=== PATIENT | male | born 1980 | race Caucasian/White ===

== ENCOUNTER 2020-04-26 14:00 | Emergency (ER) | payer OTHER ==
--- NOTE | 2020-04-26 14:58 | EDM.PDOC ---
ED HPI GENERAL MEDICAL PROBLEM - General Chief Complaint: Headache Stated Complaint: HEADACHE Time Seen by Provider: 04/26/20 14:30 Source of Information: Reports: Patient History Limitations: Reports: No Limitations - History of Present Illness INITIAL COMMENTS - FREE TEXT/NARRATIVE: 39-year-old male presents to the emergency department with primary complaint of headache. He states that last he was having sexual intercourse with his when he developed such a severe headache he had to stop. Patient described the headache pain as a band around his head. Patient states immediately after he checked his blood pressure and his diastolic pressure was over 100. he denies blurred vision, double vision, nausea, vomiting, dizziness. He states at that time he did have some chest pressure with palpitations. Reports that the headache lasted a full 3 days and he did try to take ibuprofen but this did not touch his headache pain. Also states that over the course of the 3 days that he had the headache he had general malaise as well. States that last night he again tried having intercourse with his and he developed a severe headache once again with chest pressure and palpitations. [facility] today and they sent him to the emergency department to be evaluated. Patient states he still has a headache and some chest pressure at the time of ER evaluation. He does carry a history of hypertension for which he takes Cozaar 25 mg daily. History of high cholesterol for which he no longer takes medication. He denies ever having history of migraine headaches or headache this severe. Denies any recent upper respiratory infections, fever, or chills. Headache Pain Score (Numeric/FACES): 4 - Related Data Allergies Allergy/AdvReac Type Severity Reaction Status Date / Time No Known Allergies Allergy Verified 04/26/20 14:12 Home Meds: Home Meds Losartan [Cozaar] 1 tab PO DAILY 04/26/20 [History] Past Medical History Cardiovascular History: Reports: Hypertension Musculoskeletal History: Reports: Other (See Below) Other Musculoskeletal History: achilles tendon surgery - Past Surgical History HEENT Surgical History: Reports: Adenoidectomy, Tonsillectomy Social & Family History - Tobacco Use Tobacco Use Status *Q: Former Tobacco User Used Tobacco, but Quit: Yes Month/Year Tobacco Last Used: 5 - Caffeine Use Caffeine Use: Reports: Coffee - Recreational Drug Use Recreational Drug Use: No ED ROS GENERAL - Review of Systems Review Of Systems: See Below Constitutional: Reports: No Symptoms, Other (Initial vital signs in the emergency department temp 98.4, pulse 66, respiratory rate 20, blood pressure 134/86, pulse ox 97% on room air.). Denies: Fever, Chills, Malaise HEENT: Reports: No Symptoms Respiratory: Reports: No Symptoms. Denies: Shortness of Breath, Pleuritic Chest Pain, Cough Cardiovascular: Reports: Chest Pain (Pressure), Palpitations. Denies: Edema, Lightheadedness, Syncope Endocrine: Reports: No Symptoms GI/Abdominal: Reports: No Symptoms : Reports: No Symptoms Musculoskeletal: Reports: No Symptoms Skin: Reports: No Symptoms Neurological: Reports: Headache. Denies: Confusion, Dizziness, Numbness, Paresthesia, Syncope, Tingling, Trouble Speaking, Difficulty Walking, Change in Speech Psychiatric: Reports: No Symptoms Hematologic/Lymphatic: Reports: No Symptoms Immunologic: Reports: No Symptoms - Physical Exam Exam: See Below Exam Limited By: No Limitations General Appearance: Alert, WD/WN, No Apparent Distress Eye Exam: Bilateral Eye: EOMI, PERRL, Vision Changes Ears: Normal External Exam, Hearing Grossly Normal Nose: Normal Inspection Throat/Mouth: Normal Inspection, Normal Voice, No Airway Compromise Head Exam: Atraumatic, Normocephalic Neck: Normal Inspection, Supple, Non-Tender, Full Range of Motion Respiratory/Chest: No Respiratory Distress, Lungs Clear, Normal Breath Sounds, No Accessory Muscle Use, Chest Non-Tender Cardiovascular: Normal Peripheral Pulses, Regular Rate, Rhythm, No Edema, No Murmur GI/Abdominal: Normal Bowel Sounds, Soft, Non-Tender, No Distention (Male) Exam: Deferred Rectal (Males) Exam: Deferred Neuro Exam (Abbreviated): Alert, Oriented, CN II-XII Intact, Normal Cognition, Normal Gait, No Motor/Sensory Deficits Back Exam: Normal Inspection, Full Range of Motion Extremities: Normal Inspection, Normal Range of Motion, Non-Tender, No Pedal Edema, Normal Capillary Refill Psychiatric: Normal Affect, Normal Mood Skin Exam: Warm, Dry, Intact, Normal Color, No Rash #1 Interpretation EKG Date: 04/26/20 Time: 15:12 Rhythm: NSR Rate (Beats/Min): 72 [place]: Normal P-Wave: Present QRS: Normal ST-T: Normal QT: Normal Comparison: NA - No Prior EKG EKG Interpretation Comments: EKG interpretation Per Dr. Gonzalez: T wave inversion in lead III, Q waves in lead III Course - Vital Signs Text/Narrative:: 39-year-old male presented to the ER with complaints of headache that he developed while having sexual intercourse with his last , 8 days ago. States the pain was so severe he had to stop and it lasted for 3 days despite taking ibuprofen. States that last evening he attempted to have intercourse once again and again developed severe headache. Also reports having chest pressure and some palpitations with both episodes. Full neuro exam was completed and it was unremarkable. Patient denies increased headache when going from sit to standing. He also denies increased headache when bending over or when I tap on his sinuses. I will order a CT of the head, CBC, CMP, troponin, chest x-ray, and an EKG. Last Recorded V/S: Last Vital Signs Temp 98.4 F 04/26/20 14:17 Pulse 66 04/26/20 14:17 Resp 20 04/26/20 14:17 BP 134/86 04/26/20 14:17 Pulse Ox 97 04/26/20 14:17 - Orders/Labs/Meds Orders: Active Orders 24 hr Category Date Time Status EKG Documentation Completion [RC] STAT Care 04/26/20 14:42 Active Labs: Laboratory Tests 04/26/20 04/26/20 Range/Units 14:50 14:50 WBC 6.62 (4.23-9.07) K/mm3 RBC 4.78 (4.63-6.08) M/mm3 Hgb 14.5 (13.7-17.5) gm/dl Hct 43.6 (40.1-51.0) % MCV 91.2 (79.0-92.2) fl MCH 30.3 (25.7-32.2) pg MCHC 33.3 (32.2-35.5) g/dl RDW Std Deviation 41.9 (35.1-43.9) fL Plt Count 261 (163-337) K/mm3 MPV 9.7 (9.4-12.3) fl Neut % (Auto) 53.3 (34.0-67.9) % Lymph % (Auto) 35.2 (21.8-53.1) % Centre % (Auto) 9.4 (5.3-12.2) % Eos % (Auto) 1.5 (0.8-7.0) Baso % (Auto) 0.3 (0.1-1.2) % Neut # (Auto) 3.53 (1.78-5.38) K/mm3 Lymph # (Auto) 2.33 (1.32-3.57) K/mm3 Centre # (Auto) 0.62 (0.30-0.82) K/mm3 Eos # (Auto) 0.10 (0.04-0.54) K/mm3 Baso # (Auto) 0.02 (0.01-0.08) K/mm3 Sodium 140 (136-145) mEq/L Potassium 4.0 (3.5-5.1) mEq/L Chloride 104 (98-107) mEq/L Carbon Dioxide 27 (21-32) mEq/L Anion Gap 13.0 (5-15) BUN 18 (7-18) mg/dL Creatinine 0.9 (0.7-1.3) mg/dL Est Cr Clr Drug Dosing 96.81 mL/min Estimated GFR (MDRD) > 60 (>60) mL/min BUN/Creatinine Ratio 20.0 H (14-18) Glucose 83 (74-106) mg/dL Calcium 9.2 (8.5-10.1) mg/dL Total Bilirubin 0.8 (0.2-1.0) mg/dL AST 31 (15-37) U/L ALT 82 H (16-63) U/L Alkaline Phosphatase 47 (46-116) U/L Troponin I < 0.017 (0.00-0.056) ng/mL Total Protein 7.9 (6.4-8.2) g/dl Albumin 4.1 (3.4-5.0) g/dl Globulin 3.8 gm/dL Albumin/Globulin Ratio 1.1 (1-2) - Radiology Interpretation Free Text/Narrative:: Portable view of the chest impression: Nothing acute is seen on portable chest x-ray. Head CT impression: 1 minimal sinus findings which are felt to be pre-existing and nonacute. 2. No acute abnormality is appreciated on noncontrast head CT exam. CT Results Date: 04/26/20 CT Results Time: 15:13 - Re-Assessments/Exams Free Text/Narrative Re-Assessment/Exam: 04/26/20 15:59 CBC and CMP unremarkable otherwise AST of 82, troponin less than 0.017. 04/26/20 15:59 The patient's will be discharged to home. We will fax his records from today over to the [facility]. He will need to follow-up with Mandy Winn at his earliest convenience. Patient instructed to find and start using stress reduction techniques. States he used to walk daily and has not for the past 6 months to a year. Recommend he ease into this, eat healthy and lose some weight. Departure - Departure Time of Disposition: 16:01 Disposition: Home, Self-Care 01 Condition: Good Clinical Impression: Headache associated with sexual activity - Discharge Information Instructions: Tension Headache, Adult, [id number] Referrals: Radha Winn MD [Primary Care Provider] - Forms: ED Department Discharge Additional Instructions: Seen in the emergency department today with complaints of headache precipitated by sexual intercourse with associated symptoms of chest pressure and palpitations. Cardiac work-up including chest x-ray, EKG and lab work are all unremarkable. CT of the head was unremarkable as well. It is recommended that you follow-up with the [facility] as soon as possible. Return to the emergency department should your condition worsen or change. Sepsis Event Note (ED) - Evaluation Sepsis Screening Result: No Definite Risk - Focused Exam Vital Signs: Vital Signs Temp Pulse Resp BP Pulse Ox 04/26/20 14:17 98.4 F 66 20 134/86 97 - My Orders Last 24 Hours: My Active Orders 04/26/20 14:42 EKG Documentation Completion [RC] STAT - Assessment/Plan Last 24 Hours: My Active Orders 04/26/20 14:42 EKG Documentation Completion [RC] STAT
--- NOTE | 2020-04-26 15:09 | CR ---
Chest: Portable view of the chest was obtained. Comparison: No prior chest imaging is available. Heart size and mediastinum are normal. Lungs are clear with no acute parenchymal change. Bony structures are grossly intact. Impression: 1. Nothing acute is seen on portable chest x-ray. Diagnostic code #1
--- NOTE | 2020-04-26 15:23 | CT ---
Head CT Technique: Multiple axial sections through the brain were obtained. Intravenous contrast was not utilized. Reconstructed coronal and sagittal images were reviewed. Findings: Visualized mastoid sinuses are clear. Minimal mucosal thickening is seen within the ethmoid and left frontal sinus. No air-fluid levels are seen. No acute calvarial finding is appreciated. Ventricles along with basal cisterns and sulci over the convexities are within normal limits. No abnormal parenchymal densities are seen. No evidence of intracranial hemorrhage. No midline shift or mass-effect is appreciated. Impression: 1. Minimal sinus findings which are felt to be pre-existing and nonacute. 2. No acute abnormality is appreciated on noncontrast head CT exam. Diagnostic code #2
== END 2020-04-26 16:18 | disposition home or self-care (01) ==
LOC: JD.ED 14:00
DX: R51.9 Headache, unspecified (principal); I10 Essential (primary) hypertension; Z79.899 Other long term (current) drug therapy; Z87.891 Personal history of nicotine dependence
CPT/HCPCS: 36415; 70450; 70450-26; 71045; 71045-26; 80053; 84484; 85025; 93005; 93010; 99284; 99285-25